=== PATIENT | female | born 1940 | race Caucasian/White ===

== ENCOUNTER 2018-08-09 12:52 | Inpatient (IN) | payer MEDICARE, OTHER ==
[2018-08-09] MEDS ORDERED: NALOXONE 2 MG SYG (12:56)
[2018-08-09] MEDS ORDERED: NALOXONE (0.4 MG/ML) INJ IV (13:00)
[2018-08-09] MEDS: SOD CHLORIDE 0.9% 1,000 ML IV (13:15)
[2018-08-09 13:22] LABS: ADD MAN DIFF? NO
[2018-08-09 13:32] LABS: WHITE BLOOD COUNT 18.3 10^3/ul (4.8-10.8)
[2018-08-09 13:32] LABS: BASOPHILS % 0.2 % (0.0-2.0); EOSINOPHILS # 0.1 10^3/ul (0.0-0.5); EOSINOPHILS % 0.3 % (0.0-7.0); HEMOGLOBIN 11.4 g/dl (12.0-16.0); LYMPHOCYTES # 3.4 10^3/ul (0.8-2.9); LYMPHOCYTES % 18.3 % (15.0-51.0); MEAN CORPUSCULAR HEMOGLOBIN 23.4 pg (29.0-33.0); MEAN CORPUSCULAR HGB CONC 29.2 g/dl (32.0-37.0); MEAN CORPUSCULAR VOLUME 79.9 fl (82.0-101.0); MEAN PLATELET VOLUME 11.7 fl (7.4-10.4); MONOCYTE # 1.5 10^3/ul (0.3-0.9); NEUTROPHIL # 13.3 10^3/ul (1.6-7.5); NEUTROPHILS % 72.8 % (39.0-77.0); PLATELET COUNT 408 10^3/UL (140-415); RED BLOOD COUNT 4.88 10^6/ul (4.20-5.40); RED CELL DISTRIBUTION WIDTH 16.6 % (11.5-14.5)
[2018-08-09 13:50] LABS: INR 1.06; PARTIAL THROMBOPLASTIN TIME 27.5 Sec (23.0-35.0); PROTIME 13.9 Sec (11.9-14.9); PT RATIO 1.1
[2018-08-09 13:52] LABS: ADD UMIC YES; UR ASCORBIC ACID NEGATIVE (NEGATIVE); UR BILIRUBIN (Dip) NEGATIVE (NEGATIVE); UR BLOOD (Dip) 2+ mg/dL (NEGATIVE); UR CLARITY TURBID (CLEAR); UR COLOR AMBER (YELLOW); UR GLUCOSE (Dip) NEGATIVE (NEGATIVE); UR HYALINE CAST FEW /HPF (NONE SEEN); UR KETONES (Dip) NEGATIVE (NEGATIVE); UR LEUKOCYTE ESTERASE (Dip) 3+ Leu/ul (NEGATIVE); UR NITRITE (Dip) NEGATIVE (NEGATIVE); UR NONSQUAMOUS EPITHELIAL CELL 14 /HPF (NONE SEEN); UR RBC > 182 /HPF (0-5); UR SPECIFIC GRAVITY (Dip) 1.014 (1.003-1.030); UR SQUAMOUS EPITHELIAL CELL FEW /HPF (FEW); UR TOTAL PROTEIN (Dip) 2+ mg/dl (NEGATIVE); UR UROBILINOGEN (Dip) NEGATIVE (NEGATIVE); UR WBC > 182 /HPF (0-5)
[2018-08-09 13:55] LABS: AMMONIA < 9 umol/l (9-30)
[2018-08-09 14:07] LABS: ALANINE AMINOTRANSFERASE 32 IU/L (13-69); ALBUMIN/GLOBULIN RATIO 0.93; ALKALINE PHOSPHATASE 129 IU/L (42-121); ANION GAP 11 (5-13); ASPARTATE AMINO TRANSFERASE 56 IU/L (15-46); CALCIUM 8.2 mg/dl (8.4-10.2); CARBON DIOXIDE 21 mmol/L (21-31); CHLORIDE 111 mmol/L (97-110); CREATININE 2.71 mg/dl (0.44-1.00); GLUCOSE 181 mg/dl (70-220); POTASSIUM 5.2 mmol/L (3.5-5.1); SODIUM 143 mmol/L (135-144); TOTAL PROTEIN 6.2 g/dl (6.1-8.1)
[2018-08-09 14:26] LABS: AMPHETAMINE/METHAMPHETAMINE Negative (NEGATIVE); BARBITURATES Negative (NEGATIVE); BENZODIAZEPINES Negative (NEGATIVE); CANNABINOIDS Negative (NEGATIVE); COCAINE Negative (NEGATIVE); OPIATES Negative (NEGATIVE)
[2018-08-09] MEDS ORDERED: SOD CHLORIDE 0.9% 1,000 ML IV (14:40)
[2018-08-09] MEDS ORDERED: ONDANSETRON 4 MG INJ IV ×2 (15:00→16:30)
[2018-08-09] MEDS ORDERED: ACETAMINOPHEN 325 MG TAB PO (15:00)
[2018-08-09] MEDS: CEFEPIME 1GM/50 ML (PMX) 50 ML IVPB (15:08)
[2018-08-09] MEDS: CIPROFLOXACIN 400MG/D5W 200 ML IVPB (15:17)
[2018-08-09 16:00] LABS: BLOOD UREA NITROGEN 142 mg/dl (7-20)
[2018-08-09 16:30] LABS: HEMOGLOBIN A1C 10.6 % (0-5.9)
[2018-08-09] MEDS ORDERED: GLUCAGON 1 MG INJ IM (16:30)
[2018-08-09] MEDS ORDERED: NACL 0.9% 3 ML SYG IV (16:30)
[2018-08-09] MEDS ORDERED: GLUCOSE GEL 15 GRAM TUBE PO (16:30)
[2018-08-09] MEDS ORDERED: GLUCOSE GEL 15 GRAM TUBE BUCCAL (16:30)
[2018-08-09] MEDS: DEXTROSE 5%-0.45% NACL 1,000 ML IV (16:55)
[2018-08-09] MEDS: INSULIN ASPART [NOVOLOG] 3 ML PEN SC ×2 (17:00→20:11)
[2018-08-09] MEDS ORDERED: ERTAPENEM SODIUM 0.5 GM in SOD CHLORIDE 0.9% 100 ML IVPB (18:00)
[2018-08-09] MEDS: ERTAPENEM SODIUM 0.5 GM in SOD CHLORIDE 0.9% 100 ML IVPB (18:44)
[2018-08-09 18:56] LABS: LACTIC ACID 1.6 mmol/L (0.5-2.0)
[2018-08-09] MEDS: INSULIN GLARGINE [LANTus] (100 UNITS/ML) SYG SC (20:14)
[2018-08-09] MEDS ORDERED: INSULIN GLARGINE [LANtus] 3 ML PEN SC (21:00)
[2018-08-10 00:12] LABS: CREATINE KINASE 1315 IU/L (23-200)
[2018-08-10 00:25] LABS: CK INDEX 0.6; CK-MB 8.02 ng/ml (0.0-2.4)
[2018-08-10 00:29] LABS: TROPONIN-I 0.723 ng/ml (0.000-0.120)
[2018-08-10] MEDS: INSULIN ASPART [NOVOLOG] 3 ML PEN SC ×6 (01:00→22:07)
[2018-08-10] MEDS: DEXTROSE 5%-0.45% NACL 1,000 ML IV (04:53)
[2018-08-10] MEDS: PANTOPRAZOLE 40 MG INJ IV (05:31)
[2018-08-10 06:08] LABS: ADD MAN DIFF? NO
[2018-08-10 06:18] LABS: WHITE BLOOD COUNT 14.8 10^3/ul (4.8-10.8)
[2018-08-10 06:18] LABS: BASOPHILS % 0.2 % (0.0-2.0); EOSINOPHILS # 0.1 10^3/ul (0.0-0.5); EOSINOPHILS % 0.6 % (0.0-7.0); HEMATOCRIT 36.8 % (37.0-47.0); HEMOGLOBIN 10.9 g/dl (12.0-16.0); LYMPHOCYTES # 1.8 10^3/ul (0.8-2.9); LYMPHOCYTES % 12.1 % (15.0-51.0); MEAN CORPUSCULAR HEMOGLOBIN 23.6 pg (29.0-33.0); MEAN CORPUSCULAR HGB CONC 29.6 g/dl (32.0-37.0); MEAN CORPUSCULAR VOLUME 79.8 fl (82.0-101.0); MEAN PLATELET VOLUME 11.5 fl (7.4-10.4); MONOCYTE # 1.3 10^3/ul (0.3-0.9); MONOCYTES % 8.6 % (0.0-11.0); NEUTROPHIL # 11.6 10^3/ul (1.6-7.5); PLATELET COUNT 403 10^3/UL (140-415); RED BLOOD COUNT 4.61 10^6/ul (4.20-5.40); RED CELL DISTRIBUTION WIDTH 16.4 % (11.5-14.5)
[2018-08-10 06:47] LABS: ALANINE AMINOTRANSFERASE 30 IU/L (13-69); ALBUMIN 2.9 g/dl (3.3-4.9); ALBUMIN/GLOBULIN RATIO 0.87; ALKALINE PHOSPHATASE 144 IU/L (42-121); ANION GAP 10 (5-13); ASPARTATE AMINO TRANSFERASE 55 IU/L (15-46); BILIRUBIN,INDIRECT 0.1 mg/dl (0-1.1); BILIRUBIN,TOTAL 0.1 mg/dl (0.2-1.3); BLOOD UREA NITROGEN 116 mg/dl (7-20); CALCIUM 8.1 mg/dl (8.4-10.2); CARBON DIOXIDE 25 mmol/L (21-31); CHLORIDE 116 mmol/L (97-110); CREATININE 1.72 mg/dl (0.44-1.00); GLUCOSE 116 mg/dl (70-220); POTASSIUM 3.8 mmol/L (3.5-5.1); SODIUM 151 mmol/L (135-144); TOTAL PROTEIN 6.2 g/dl (6.1-8.1)
[2018-08-10 07:04] LABS: CREATINE KINASE 1239 IU/L (23-200)
[2018-08-10 07:16] LABS: CK INDEX 0.6
[2018-08-10] MEDS ORDERED: VITAMIN A & D 5 GM OINT PACKET TOP (07:21)
[2018-08-10 07:24] LABS: TROPONIN-I 0.588 ng/ml (0.000-0.120)
[2018-08-10] MEDS: POVIDONE IODINE 10% 28.4 GM OINT TOP (08:39)
[2018-08-10] MEDS: ASPIRIN 300 MG SUPP PR (08:40)
[2018-08-10] MEDS: BALSAM PERU/CASTOR OIL 60 GM TUBE TOP (08:40)
[2018-08-10] MEDS: INSULIN GLARGINE [LANTus] (100 UNITS/ML) SYG SC ×2 (08:43→22:11)
[2018-08-10] MEDS ORDERED: INSULIN GLARGINE [LANtus] 3 ML PEN SC (09:00)
[2018-08-10] MEDS: D5W + KCL 20 MEQ 1,000 ML IV ×3 (13:00→23:00)
[2018-08-10] MEDS: ERTAPENEM SODIUM 0.5 GM in SOD CHLORIDE 0.9% 100 ML IVPB (18:49)
[2018-08-10] MEDS ORDERED: VANCOMYCIN IV PER PHARMACY XX (21:30)
[2018-08-11] MEDS: VANCOMYCIN 1 GM 250 ML IVPB (00:28)
[2018-08-11] MEDS: INSULIN ASPART [NOVOLOG] 3 ML PEN SC ×6 (01:00→21:00)
[2018-08-11 06:05] LABS: ADD MAN DIFF? NO
[2018-08-11 06:07] LABS: WHITE BLOOD COUNT 10.5 10^3/ul (4.8-10.8)
[2018-08-11 06:08] LABS: ABNORMAL IP MESSAGE 1; BASOPHILS % 0.2 % (0.0-2.0); EOSINOPHILS # 0.2 10^3/ul (0.0-0.5); HEMATOCRIT 33.3 % (37.0-47.0); HEMOGLOBIN 9.6 g/dl (12.0-16.0); LYMPHOCYTES # 1.7 10^3/ul (0.8-2.9); LYMPHOCYTES % 15.9 % (15.0-51.0); MEAN CORPUSCULAR HEMOGLOBIN 23.5 pg (29.0-33.0); MEAN CORPUSCULAR HGB CONC 28.8 g/dl (32.0-37.0); MEAN CORPUSCULAR VOLUME 81.4 fl (82.0-101.0); MONOCYTE # 0.8 10^3/ul (0.3-0.9); MONOCYTES % 7.6 % (0.0-11.0); NEUTROPHIL # 7.8 10^3/ul (1.6-7.5); NEUTROPHILS % 73.8 % (39.0-77.0); PLATELET COUNT 407 10^3/UL (140-415); RED BLOOD COUNT 4.09 10^6/ul (4.20-5.40); RED CELL DISTRIBUTION WIDTH 16.1 % (11.5-14.5)
[2018-08-11 06:19] LABS: POSITIVE DIFF @See below
[2018-08-11] MEDS: PANTOPRAZOLE 40 MG INJ IV (06:22)
[2018-08-11 06:25] LABS: ALBUMIN 2.4 g/dl (3.3-4.9); ANION GAP 9 (5-13); BLOOD UREA NITROGEN 62 mg/dl (7-20); CALCIUM 8.2 mg/dl (8.4-10.2); CARBON DIOXIDE 26 mmol/L (21-31); CHLORIDE 116 mmol/L (97-110); CHOL/HDL RATIO 6.2 RATIO; CHOLESTEROL 137 mg/dl (100-200); CREATININE 1.01 mg/dl (0.44-1.00); GLUCOSE 109 mg/dl (70-220); HDL CHOLESTEROL 22 mg/dl (33-92); LDL CHOLESTEROL,CALCULATED 73 mg/dl; MAGNESIUM 2.7 mg/dl (1.7-2.5); POTASSIUM 3.7 mmol/L (3.5-5.1); SODIUM 151 mmol/L (135-144); TRIGLYCERIDES 209 mg/dl (0-149)
[2018-08-11 06:30] LABS: CREATINE KINASE 508 IU/L (23-200)
[2018-08-11 06:42] LABS: CK INDEX 0.7; CK-MB 3.34 ng/ml (0.0-2.4)
[2018-08-11 06:47] LABS: TROPONIN-I 0.316 ng/ml (0.000-0.120)
[2018-08-11] MEDS: INSULIN GLARGINE [LANTus] (100 UNITS/ML) SYG SC ×2 (08:53→21:32)
[2018-08-11] MEDS: ASPIRIN 300 MG SUPP PR (08:55)
[2018-08-11] MEDS: POVIDONE IODINE 10% 28.4 GM OINT TOP (08:57)
[2018-08-11] MEDS: BALSAM PERU/CASTOR OIL 60 GM TUBE TOP (08:57)
[2018-08-11] MEDS: D5W + KCL 20 MEQ 1,000 ML IV ×2 (08:58→18:10)
[2018-08-11] MEDS: DEXTROSE 50% 50 ML SYRINGE IV ×2 (09:00→10:59)
[2018-08-11] MEDS: ERTAPENEM SODIUM 1 GM in SOD CHLORIDE 0.9% 100 ML IVPB (17:25)
[2018-08-11] MEDS: ATORVASTATIN 40 MG TAB PO (20:11)
[2018-08-11] MEDS: METOPROLOL 25 MG TAB PO (20:11)
[2018-08-12] MEDS: INSULIN ASPART [NOVOLOG] 3 ML PEN SC ×6 (01:00→21:00)
[2018-08-12] MEDS: VANCOMYCIN 500 MG (PMX) 100 ML IVPB (01:15)
[2018-08-12] MEDS: D5W + KCL 20 MEQ 1,000 ML IV ×2 (05:08→17:25)
[2018-08-12 06:28] LABS: CREATINE KINASE 240 IU/L (23-200)
[2018-08-12 06:39] LABS: CK INDEX 1.2; CK-MB 2.85 ng/ml (0.0-2.4)
[2018-08-12] MEDS: PANTOPRAZOLE 40 MG INJ IV (06:49)
[2018-08-12 07:40] LABS: TROPONIN-I 0.198 ng/ml (0.000-0.120)
[2018-08-12] MEDS: METOPROLOL 25 MG TAB PO ×2 (09:00→21:24)
[2018-08-12 09:12] LABS: ADD MAN DIFF? NO
[2018-08-12 09:15] LABS: WHITE BLOOD COUNT 9.1 10^3/ul (4.8-10.8)
[2018-08-12 09:15] LABS: ABNORMAL IP MESSAGE 1; BASOPHILS % 0.1 % (0.0-2.0); EOSINOPHILS # 0.2 10^3/ul (0.0-0.5); EOSINOPHILS % 1.9 % (0.0-7.0); HEMATOCRIT 32.4 % (37.0-47.0); HEMOGLOBIN 9.3 g/dl (12.0-16.0); LYMPHOCYTES % 21.9 % (15.0-51.0); MEAN CORPUSCULAR HEMOGLOBIN 23.4 pg (29.0-33.0); MEAN CORPUSCULAR HGB CONC 28.7 g/dl (32.0-37.0); MEAN CORPUSCULAR VOLUME 81.4 fl (82.0-101.0); MEAN PLATELET VOLUME 12.4 fl (7.4-10.4); MONOCYTE # 0.7 10^3/ul (0.3-0.9); MONOCYTES % 7.5 % (0.0-11.0); NEUTROPHIL # 6.2 10^3/ul (1.6-7.5); NEUTROPHILS % 67.8 % (39.0-77.0); RED BLOOD COUNT 3.98 10^6/ul (4.20-5.40); RED CELL DISTRIBUTION WIDTH 15.9 % (11.5-14.5)
[2018-08-12] MEDS: INSULIN GLARGINE [LANTus] (100 UNITS/ML) SYG SC ×2 (09:15→21:31)
[2018-08-12 09:16] LABS: PLATELET COUNT 312 10^3/UL (140-415); POSITIVE DIFF @See below
[2018-08-12 10:11] LABS: ALBUMIN 2.5 g/dl (3.3-4.9); ANION GAP 1 (5-13); BLOOD UREA NITROGEN 36 mg/dl (7-20); CALCIUM 8.2 mg/dl (8.4-10.2); CARBON DIOXIDE 23 mmol/L (21-31); CHLORIDE 121 mmol/L (97-110); GLUCOSE 111 mg/dl (70-220); MAGNESIUM 2.4 mg/dl (1.7-2.5); PHOSPHORUS 2.3 mg/dl (2.5-4.9); SODIUM 145 mmol/L (135-144)
[2018-08-12] MEDS: ASPIRIN 300 MG SUPP PR (13:09)
[2018-08-12] MEDS: POVIDONE IODINE 10% 28.4 GM OINT TOP (13:10)
[2018-08-12] MEDS: BALSAM PERU/CASTOR OIL 60 GM TUBE TOP (13:10)
[2018-08-12] MEDS: ERTAPENEM SODIUM 1 GM in SOD CHLORIDE 0.9% 100 ML IVPB (17:25)
[2018-08-12] MEDS: ATORVASTATIN 40 MG TAB PO (21:19)
[2018-08-12] MEDS ORDERED: VANCOMYCIN 750 MG (PMX) 250 ML IVPB (22:00)
[2018-08-13] MEDS: INSULIN ASPART [NOVOLOG] 3 ML PEN SC ×6 (01:00→20:34)
[2018-08-13] MEDS: D5W + KCL 20 MEQ 1,000 ML IV (01:56)
[2018-08-13] MEDS: PANTOPRAZOLE 40 MG INJ IV (05:53)
[2018-08-13 06:38] LABS: ADD MAN DIFF? NO
[2018-08-13 06:41] LABS: WHITE BLOOD COUNT 11.2 10^3/ul (4.8-10.8)
[2018-08-13 06:41] LABS: BASOPHILS % 0.2 % (0.0-2.0); EOSINOPHILS # 0.1 10^3/ul (0.0-0.5); EOSINOPHILS % 1.3 % (0.0-7.0); HEMATOCRIT 32.7 % (37.0-47.0); HEMOGLOBIN 9.7 g/dl (12.0-16.0); LYMPHOCYTES # 2.3 10^3/ul (0.8-2.9); LYMPHOCYTES % 20.8 % (15.0-51.0); MEAN CORPUSCULAR HEMOGLOBIN 23.5 pg (29.0-33.0); MEAN CORPUSCULAR HGB CONC 29.7 g/dl (32.0-37.0); MEAN CORPUSCULAR VOLUME 79.4 fl (82.0-101.0); MEAN PLATELET VOLUME 11.1 fl (7.4-10.4); MONOCYTE # 0.9 10^3/ul (0.3-0.9); MONOCYTES % 7.6 % (0.0-11.0); NEUTROPHIL # 7.8 10^3/ul (1.6-7.5); NEUTROPHILS % 69.7 % (39.0-77.0); PLATELET COUNT 415 10^3/UL (140-415); RED BLOOD COUNT 4.12 10^6/ul (4.20-5.40); RED CELL DISTRIBUTION WIDTH 15.2 % (11.5-14.5)
[2018-08-13 07:04] LABS: ALBUMIN 2.5 g/dl (3.3-4.9); BLOOD UREA NITROGEN 20 mg/dl (7-20); CHLORIDE 109 mmol/L (97-110); CREATININE 0.62 mg/dl (0.44-1.00); GLUCOSE 90 mg/dl (70-220); POTASSIUM 4.1 mmol/L (3.5-5.1); SODIUM 138 mmol/L (135-144)
[2018-08-13 07:05] LABS: ANION GAP 5 (5-13); CARBON DIOXIDE 24 mmol/L (21-31)
[2018-08-13] MEDS: GLUCOSE GEL 15 GRAM TUBE PO (08:33)
[2018-08-13] MEDS: CLOPIDOGREL 75 MG TAB PO (08:43)
[2018-08-13] MEDS: INSULIN GLARGINE [LANTus] (100 UNITS/ML) SYG SC ×2 (08:44→21:08)
[2018-08-13] MEDS: BALSAM PERU/CASTOR OIL 60 GM TUBE TOP (08:44)
[2018-08-13] MEDS: METOPROLOL 25 MG TAB PO ×2 (08:44→20:41)
[2018-08-13] MEDS: POVIDONE IODINE 10% 28.4 GM OINT TOP (08:44)
[2018-08-13] MEDS: ASPIRIN 300 MG SUPP PR (09:00)
[2018-08-13] MEDS ORDERED: CLOPIDOGREL 75 MG TAB PO (09:00)
[2018-08-13] MEDS: DEXTROSE 5%-0.45% NACL 1,000 ML IV (11:00)
[2018-08-13 16:34] LABS: ADD UMIC YES; UR ASCORBIC ACID NEGATIVE (NEGATIVE); UR BILIRUBIN (Dip) NEGATIVE (NEGATIVE); UR BLOOD (Dip) 2+ mg/dL (NEGATIVE); UR BUDDING YEAST MANY /HPF (NONE SEEN); UR CLARITY TURBID (CLEAR); UR COLOR YELLOW (YELLOW); UR GLUCOSE (Dip) NEGATIVE (NEGATIVE); UR KETONES (Dip) NEGATIVE (NEGATIVE); UR LEUKOCYTE ESTERASE (Dip) 3+ Leu/ul (NEGATIVE); UR NITRITE (Dip) NEGATIVE (NEGATIVE); UR NONSQUAMOUS EPITHELIAL CELL 6 /HPF (NONE SEEN); UR RBC 128 /HPF (0-5); UR SPECIFIC GRAVITY (Dip) 1.019 (1.003-1.030); UR TOTAL PROTEIN (Dip) 2+ mg/dl (NEGATIVE); UR UROBILINOGEN (Dip) 1+ mg/dL (NEGATIVE); UR WBC > 182 /HPF (0-5)
[2018-08-13] MEDS: ERTAPENEM SODIUM 1 GM in SOD CHLORIDE 0.9% 100 ML IVPB (18:04)
[2018-08-13] MEDS: ATORVASTATIN 40 MG TAB PO (20:41)
[2018-08-14] MEDS: INSULIN ASPART [NOVOLOG] 3 ML PEN SC ×6 (01:00→21:00)
[2018-08-14] MEDS: DEXTROSE 50% 50 ML SYRINGE IV (01:15)
[2018-08-14] MEDS: PANTOPRAZOLE 40 MG INJ IV (05:37)
[2018-08-14 06:01] LABS: ADD MAN DIFF? NO
[2018-08-14 06:03] LABS: BASOPHILS % 0.2 % (0.0-2.0); EOSINOPHILS # 0.1 10^3/ul (0.0-0.5); HEMATOCRIT 33.5 % (37.0-47.0); HEMOGLOBIN 10.1 g/dl (12.0-16.0); LYMPHOCYTES # 2.5 10^3/ul (0.8-2.9); LYMPHOCYTES % 19.4 % (15.0-51.0); MEAN CORPUSCULAR HEMOGLOBIN 23.4 pg (29.0-33.0); MEAN CORPUSCULAR HGB CONC 30.1 g/dl (32.0-37.0); MEAN CORPUSCULAR VOLUME 77.5 fl (82.0-101.0); MEAN PLATELET VOLUME 11.3 fl (7.4-10.4); MONOCYTES % 7.8 % (0.0-11.0); NEUTROPHIL # 9.3 10^3/ul (1.6-7.5); NEUTROPHILS % 71.1 % (39.0-77.0); PLATELET COUNT 443 10^3/UL (140-415); RED BLOOD COUNT 4.32 10^6/ul (4.20-5.40); RED CELL DISTRIBUTION WIDTH 15.1 % (11.5-14.5)
[2018-08-14] MEDS: DEXTROSE 5%-0.45% NACL 1,000 ML IV (07:00)
[2018-08-14 07:04] LABS: ANION GAP 6 (5-13); BLOOD UREA NITROGEN 18 mg/dl (7-20); CALCIUM 8.2 mg/dl (8.4-10.2); CARBON DIOXIDE 23 mmol/L (21-31); CHLORIDE 105 mmol/L (97-110); CREATININE 0.71 mg/dl (0.44-1.00); GLUCOSE 291 mg/dl (70-220); MAGNESIUM 1.9 mg/dl (1.7-2.5); PHOSPHORUS 3.2 mg/dl (2.5-4.9); POTASSIUM 4.2 mmol/L (3.5-5.1); SODIUM 134 mmol/L (135-144)
[2018-08-14] MEDS: CLOPIDOGREL 75 MG TAB PO (09:06)
[2018-08-14] MEDS: METOPROLOL 25 MG TAB PO ×2 (09:06→20:59)
[2018-08-14] MEDS: ASPIRIN 300 MG SUPP PR (09:06)
[2018-08-14] MEDS: POVIDONE IODINE 10% 28.4 GM OINT TOP (09:07)
[2018-08-14] MEDS: BALSAM PERU/CASTOR OIL 60 GM TUBE TOP (09:07)
[2018-08-14] MEDS: COLLAGENASE 5 GM (UD JAR) TOP (09:07)
[2018-08-14] MEDS: INSULIN GLARGINE [LANTus] (100 UNITS/ML) SYG SC ×2 (09:12→21:33)
[2018-08-14] MEDS: CASPOFUNGIN 70 MG in SOD CHLORIDE 0.9% 250 ML IVPB (18:12)
[2018-08-14] MEDS: ATORVASTATIN 80 MG TAB PO (20:59)
[2018-08-14] MEDS: ASCORBIC ACID 500 MG TAB PO (20:59)
[2018-08-14] MEDS: EZETIMIBE 10 MG TAB PO (20:59)
[2018-08-15] MEDS: INSULIN ASPART [NOVOLOG] 3 ML PEN SC ×6 (01:00→20:31)
[2018-08-15] MEDS: PANTOPRAZOLE 40 MG INJ IV (05:17)
[2018-08-15] MEDS: DEXTROSE 50% 50 ML SYRINGE IV ×2 (05:25→12:02)
[2018-08-15 06:19] LABS: ADD MAN DIFF? NO
[2018-08-15 06:24] LABS: WHITE BLOOD COUNT 11.6 10^3/ul (4.8-10.8)
[2018-08-15 06:24] LABS: BASOPHILS % 0.2 % (0.0-2.0); EOSINOPHILS # 0.1 10^3/ul (0.0-0.5); EOSINOPHILS % 0.9 % (0.0-7.0); HEMATOCRIT 29.2 % (37.0-47.0); LYMPHOCYTES # 3.3 10^3/ul (0.8-2.9); LYMPHOCYTES % 28.4 % (15.0-51.0); MEAN CORPUSCULAR HEMOGLOBIN 23.5 pg (29.0-33.0); MEAN CORPUSCULAR HGB CONC 30.8 g/dl (32.0-37.0); MEAN CORPUSCULAR VOLUME 76.2 fl (82.0-101.0); MEAN PLATELET VOLUME 10.7 fl (7.4-10.4); MONOCYTE # 0.9 10^3/ul (0.3-0.9); MONOCYTES % 7.8 % (0.0-11.0); NEUTROPHIL # 7.2 10^3/ul (1.6-7.5); NEUTROPHILS % 62.3 % (39.0-77.0); PLATELET COUNT 452 10^3/UL (140-415); RED BLOOD COUNT 3.83 10^6/ul (4.20-5.40); RED CELL DISTRIBUTION WIDTH 14.8 % (11.5-14.5)
[2018-08-15 07:18] LABS: ANION GAP 5 (5-13); BLOOD UREA NITROGEN 11 mg/dl (7-20); CALCIUM 8.4 mg/dl (8.4-10.2); CARBON DIOXIDE 22 mmol/L (21-31); CHLORIDE 111 mmol/L (97-110); CREATININE 0.69 mg/dl (0.44-1.00); MAGNESIUM 1.9 mg/dl (1.7-2.5); PHOSPHORUS 2.9 mg/dl (2.5-4.9); POTASSIUM 3.6 mmol/L (3.5-5.1); SODIUM 138 mmol/L (135-144)
[2018-08-15 07:28] LABS: GLUCOSE 41 mg/dl (70-220)
[2018-08-15] MEDS: CLOPIDOGREL 75 MG TAB PO (07:55)
[2018-08-15] MEDS: ASPIRIN 300 MG SUPP PR (07:56)
[2018-08-15 08:12] LABS: ERYTHROCYTE SEDIMENTATION RATE 110 mm/Hr (0-30)
[2018-08-15] MEDS ORDERED: INSULIN GLARGINE [LANTus] (100 UNITS/ML) SYG SC ×2 (09:00→21:00)
[2018-08-15] MEDS ORDERED: CLOPIDOGREL 75 MG TAB PO (09:00)
[2018-08-15] MEDS: COLLAGENASE 5 GM (UD JAR) TOP (09:57)
[2018-08-15] MEDS: BALSAM PERU/CASTOR OIL 60 GM TUBE TOP (09:57)
[2018-08-15] MEDS: ASCORBIC ACID 500 MG TAB PO ×2 (09:59→20:30)
[2018-08-15] MEDS: METOPROLOL 25 MG TAB PO (09:59)
[2018-08-15] MEDS: FAMOTIDINE 20 MG TAB PO (09:59)
[2018-08-15] MEDS: MEMANTINE 10 MG TAB PO (09:59)
[2018-08-15] MEDS: MULTIVITAMINS THERAPEUTIC TAB PO (09:59)
[2018-08-15] MEDS ORDERED: ASPIRIN 81 MG TAB PO (12:00)
[2018-08-15 12:52] LABS: HEMATOCRIT 31.3 % (37.0-47.0); HEMOGLOBIN 9.5 g/dl (12.0-16.0)
[2018-08-15] MEDS: SOD CHLORIDE 0.9% 100 ML (14:12)
[2018-08-15] MEDS: IODIXANOL LOCM 100 ML BTL (14:12)
[2018-08-15 15:10] LABS: RAPID PLASMA REAGIN NONREACTIVE (NR)
[2018-08-15] MEDS: POVIDONE IODINE 10% 28.4 GM OINT TOP (17:26)
[2018-08-15] MEDS: ERTAPENEM SODIUM 1 GM in SOD CHLORIDE 0.9% 100 ML IVPB (17:27)
[2018-08-15] MEDS: CASPOFUNGIN 50 MG in SOD CHLORIDE 0.9% 250 ML IVPB (19:32)
[2018-08-15] MEDS: ATORVASTATIN 80 MG TAB PO (20:29)
[2018-08-15] MEDS: EZETIMIBE 10 MG TAB PO (20:29)
[2018-08-15] MEDS: METOPROLOL 50 MG TAB PO (20:31)
[2018-08-15] MEDS: INSULIN GLARGINE [LANTus] (100 UNITS/ML) SYG SC (20:45)
[2018-08-16] MEDS: INSULIN ASPART [NOVOLOG] 3 ML PEN SC ×6 (02:00→21:57)
[2018-08-16] MEDS: DEXTROSE 50% 50 ML SYRINGE IV ×2 (02:04→06:00)
[2018-08-16] MEDS: PANTOPRAZOLE 40 MG INJ IV (06:06)
[2018-08-16 06:23] LABS: OCCULT BLOOD STOOL POSITIVE (NEGATIVE)
[2018-08-16] MEDS: ASCORBIC ACID 500 MG TAB PO ×2 (08:10→21:37)
[2018-08-16] MEDS: CLOPIDOGREL 75 MG TAB PO (08:10)
[2018-08-16] MEDS: ASPIRIN 81 MG TAB PO (08:10)
[2018-08-16] MEDS: COLLAGENASE 5 GM (UD JAR) TOP (08:10)
[2018-08-16] MEDS: MEMANTINE 10 MG TAB PO (08:10)
[2018-08-16] MEDS: MULTIVITAMINS THERAPEUTIC TAB PO (08:10)
[2018-08-16] MEDS: FAMOTIDINE 20 MG TAB PO (08:10)
[2018-08-16] MEDS: METOPROLOL 50 MG TAB PO ×2 (08:11→21:42)
[2018-08-16] MEDS: POVIDONE IODINE 10% 28.4 GM OINT TOP (08:13)
[2018-08-16] MEDS: BALSAM PERU/CASTOR OIL 60 GM TUBE TOP (08:13)
[2018-08-16] MEDS: INSULIN GLARGINE [LANTus] (100 UNITS/ML) SYG SC (08:19)
[2018-08-16] MEDS ORDERED: INSULIN GLARGINE [LANTus] (100 UNITS/ML) SYG SC (09:00)
[2018-08-16 15:21] LABS: ADD MAN DIFF? NO
[2018-08-16 15:26] LABS: BASOPHILS % 0.2 % (0.0-2.0); EOSINOPHILS # 0.1 10^3/ul (0.0-0.5); EOSINOPHILS % 1.4 % (0.0-7.0); HEMATOCRIT 28.8 % (37.0-47.0); HEMOGLOBIN 8.7 g/dl (12.0-16.0); LYMPHOCYTES # 1.9 10^3/ul (0.8-2.9); LYMPHOCYTES % 21.3 % (15.0-51.0); MEAN CORPUSCULAR HEMOGLOBIN 23.5 pg (29.0-33.0); MEAN CORPUSCULAR HGB CONC 30.2 g/dl (32.0-37.0); MEAN CORPUSCULAR VOLUME 77.8 fl (82.0-101.0); MEAN PLATELET VOLUME 10.7 fl (7.4-10.4); MONOCYTE # 0.7 10^3/ul (0.3-0.9); MONOCYTES % 8.3 % (0.0-11.0); NEUTROPHIL # 6.1 10^3/ul (1.6-7.5); NEUTROPHILS % 68.5 % (39.0-77.0); PLATELET COUNT 379 10^3/UL (140-415); RED CELL DISTRIBUTION WIDTH 14.9 % (11.5-14.5)
[2018-08-16 15:26] LABS: WHITE BLOOD COUNT 8.8 10^3/ul (4.8-10.8)
[2018-08-16 15:46] LABS: ALANINE AMINOTRANSFERASE 28 IU/L (13-69); ALBUMIN 2.3 g/dl (3.3-4.9); ALBUMIN/GLOBULIN RATIO 0.85; ALKALINE PHOSPHATASE 131 IU/L (42-121); ANION GAP 7 (5-13); ASPARTATE AMINO TRANSFERASE 30 IU/L (15-46); BLOOD UREA NITROGEN 11 mg/dl (7-20); CALCIUM 7.9 mg/dl (8.4-10.2); CARBON DIOXIDE 24 mmol/L (21-31); CHLORIDE 108 mmol/L (97-110); CREATININE 0.68 mg/dl (0.44-1.00); GLUCOSE 183 mg/dl (70-220); SODIUM 139 mmol/L (135-144)
[2018-08-16] MEDS: ERTAPENEM SODIUM 1 GM in SOD CHLORIDE 0.9% 100 ML IVPB (16:12)
[2018-08-16] MEDS: CASPOFUNGIN 50 MG in SOD CHLORIDE 0.9% 250 ML IVPB (17:41)
[2018-08-16] MEDS: IOHEXOL 100 ML (21:07)
[2018-08-16] MEDS: SOD CHLORIDE 0.9% 100 ML (21:07)
[2018-08-16] MEDS: EZETIMIBE 10 MG TAB PO (21:37)
[2018-08-16] MEDS: ATORVASTATIN 80 MG TAB PO (21:37)
[2018-08-17] MEDS: INSULIN ASPART [NOVOLOG] 3 ML PEN SC ×6 (00:48→20:28)
[2018-08-17] MEDS: INSULIN GLARGINE [LANTus] (100 UNITS/ML) SYG SC ×2 (00:48→20:28)
[2018-08-17] MEDS: PANTOPRAZOLE 40 MG INJ IV (06:08)
[2018-08-17 06:34] LABS: ADD MAN DIFF? NO
[2018-08-17 06:44] LABS: BASOPHILS % 0.3 % (0.0-2.0); EOSINOPHILS # 0.1 10^3/ul (0.0-0.5); EOSINOPHILS % 0.7 % (0.0-7.0); HEMATOCRIT 27.5 % (37.0-47.0); HEMOGLOBIN 8.4 g/dl (12.0-16.0); LYMPHOCYTES # 2.6 10^3/ul (0.8-2.9); LYMPHOCYTES % 21.4 % (15.0-51.0); MEAN CORPUSCULAR HEMOGLOBIN 23.9 pg (29.0-33.0); MEAN CORPUSCULAR HGB CONC 30.5 g/dl (32.0-37.0); MEAN CORPUSCULAR VOLUME 78.1 fl (82.0-101.0); MEAN PLATELET VOLUME 10.9 fl (7.4-10.4); MONOCYTE # 0.9 10^3/ul (0.3-0.9); MONOCYTES % 7.4 % (0.0-11.0); NEUTROPHIL # 8.3 10^3/ul (1.6-7.5); NEUTROPHILS % 69.8 % (39.0-77.0); PLATELET COUNT 390 10^3/UL (140-415); RED BLOOD COUNT 3.52 10^6/ul (4.20-5.40); RED CELL DISTRIBUTION WIDTH 15.3 % (11.5-14.5)
[2018-08-17 06:44] LABS: WHITE BLOOD COUNT 11.9 10^3/ul (4.8-10.8)
[2018-08-17 06:47] LABS: RETICULOCYTE COUNT # 0.034 X10^6 (0.020-0.110)
[2018-08-17 06:47] LABS: RETICULOCYTE RBC 3.49
[2018-08-17 07:05] LABS: ANION GAP 8 (5-13); BLOOD UREA NITROGEN 11 mg/dl (7-20); CALCIUM 8.3 mg/dl (8.4-10.2); CARBON DIOXIDE 24 mmol/L (21-31); CHLORIDE 110 mmol/L (97-110); CREATININE 0.69 mg/dl (0.44-1.00); GLUCOSE 78 mg/dl (70-220); MAGNESIUM 1.8 mg/dl (1.7-2.5); PHOSPHORUS 2.6 mg/dl (2.5-4.9); POTASSIUM 3.9 mmol/L (3.5-5.1); SODIUM 142 mmol/L (135-144)
[2018-08-17 07:20] LABS: IRON < 10 ug/dl (35-150); TOTAL IRON BINDING CAPACITY 183 ug/dl (241-421)
[2018-08-17 07:53] LABS: FERRITIN 86.4 ng/ml (11.1-264.0)
[2018-08-17] MEDS: ASPIRIN 81 MG TAB PO (08:30)
[2018-08-17] MEDS: METOPROLOL 50 MG TAB PO ×2 (08:31→21:00)
[2018-08-17] MEDS: MULTIVITAMINS THERAPEUTIC TAB PO (08:31)
[2018-08-17] MEDS: MEMANTINE 10 MG TAB PO (08:31)
[2018-08-17] MEDS: CLOPIDOGREL 75 MG TAB PO (08:31)
[2018-08-17] MEDS: ASCORBIC ACID 500 MG TAB PO ×2 (08:31→21:00)
[2018-08-17] MEDS: COLLAGENASE 5 GM (UD JAR) TOP (08:32)
[2018-08-17] MEDS: BALSAM PERU/CASTOR OIL 60 GM TUBE TOP (08:32)
[2018-08-17] MEDS: POVIDONE IODINE 10% 28.4 GM OINT TOP (08:33)
[2018-08-17] MEDS: DEXTROSE 50% 50 ML SYRINGE IV (08:52)
[2018-08-17] MEDS ORDERED: INSULIN GLARGINE [LANTus] (100 UNITS/ML) SYG SC (09:00)
[2018-08-17] MEDS: SOD CHLORIDE 0.9% 1,000 ML IV (12:21)
[2018-08-17] MEDS: ERTAPENEM SODIUM 1 GM in SOD CHLORIDE 0.9% 100 ML IVPB (15:03)
[2018-08-17] MEDS ORDERED: MEROPENEM 500MG/50 ML (PMX) 50 ML IVPB (15:30)
[2018-08-17] MEDS ORDERED: VANCOMYCIN IV PER PHARMACY XX (15:30)
[2018-08-17] MEDS: MEROPENEM 1 GM/50ML(PMX) 50 ML IVPB ×2 (16:31→23:15)
[2018-08-17] MEDS: VANCOMYCIN 1 GM 250 ML IVPB (17:12)
[2018-08-17] MEDS: CASPOFUNGIN 50 MG in SOD CHLORIDE 0.9% 250 ML IVPB (18:24)
[2018-08-17] MEDS: EZETIMIBE 10 MG TAB PO (21:00)
[2018-08-17] MEDS: ATORVASTATIN 80 MG TAB PO (21:00)
[2018-08-18] MEDS: PANTOPRAZOLE 40 MG INJ IV (05:10)
[2018-08-18] MEDS: ACETAMINOPHEN 650 MG SUPP PR ×2 (05:10→16:21)
[2018-08-18] MEDS: INSULIN ASPART [NOVOLOG] 3 ML PEN SC ×4 (05:28→23:41)
[2018-08-18 05:53] LABS: ADD MAN DIFF? NO
[2018-08-18 06:04] LABS: BASOPHIL # 0.1 10^3/ul (0.0-0.1); BASOPHILS % 0.5 % (0.0-2.0); EOSINOPHILS # 0.2 10^3/ul (0.0-0.5); EOSINOPHILS % 1.9 % (0.0-7.0); HEMATOCRIT 24.4 % (37.0-47.0); HEMOGLOBIN 7.4 g/dl (12.0-16.0); LYMPHOCYTES # 2.2 10^3/ul (0.8-2.9); LYMPHOCYTES % 21.4 % (15.0-51.0); MEAN CORPUSCULAR HEMOGLOBIN 23.3 pg (29.0-33.0); MEAN CORPUSCULAR HGB CONC 30.3 g/dl (32.0-37.0); MEAN PLATELET VOLUME 10.8 fl (7.4-10.4); MONOCYTE # 0.7 10^3/ul (0.3-0.9); MONOCYTES % 7.2 % (0.0-11.0); NEUTROPHIL # 7.1 10^3/ul (1.6-7.5); NEUTROPHILS % 68.7 % (39.0-77.0); PLATELET COUNT 387 10^3/UL (140-415); RED BLOOD COUNT 3.17 10^6/ul (4.20-5.40); RED CELL DISTRIBUTION WIDTH 15.2 % (11.5-14.5)
[2018-08-18 06:04] LABS: WHITE BLOOD COUNT 10.3 10^3/ul (4.8-10.8)
[2018-08-18 06:33] LABS: ANION GAP 7 (5-13); BLOOD UREA NITROGEN 20 mg/dl (7-20); CARBON DIOXIDE 24 mmol/L (21-31); CHLORIDE 110 mmol/L (97-110); CREATININE 0.69 mg/dl (0.44-1.00); GLUCOSE 137 mg/dl (70-220); MAGNESIUM 1.7 mg/dl (1.7-2.5); PHOSPHORUS 2.5 mg/dl (2.5-4.9); POTASSIUM 4.5 mmol/L (3.5-5.1); SODIUM 141 mmol/L (135-144)
[2018-08-18 06:41] LABS: TROPONIN-I 0.044 ng/ml (0.000-0.120)
[2018-08-18] MEDS: ASCORBIC ACID 500 MG TAB PO ×2 (08:11→21:05)
[2018-08-18] MEDS: BALSAM PERU/CASTOR OIL 60 GM TUBE TOP (08:11)
[2018-08-18] MEDS: MEMANTINE 10 MG TAB PO (08:11)
[2018-08-18] MEDS: MULTIVITAMINS THERAPEUTIC TAB PO (08:11)
[2018-08-18] MEDS: MEROPENEM 1 GM/50ML(PMX) 50 ML IVPB ×2 (08:11→21:05)
[2018-08-18] MEDS: COLLAGENASE 5 GM (UD JAR) TOP (08:11)
[2018-08-18] MEDS: METOPROLOL 50 MG TAB PO ×2 (08:12→21:00)
[2018-08-18] MEDS: POVIDONE IODINE 10% 28.4 GM OINT TOP (08:14)
[2018-08-18 11:08] LABS: IMMEDIATE SPIN CROSSMATCH 1 2
[2018-08-18] MEDS ORDERED: SOD CHLORIDE 0.9% 1,000 ML IV (13:00)
[2018-08-18] MEDS: PANTOPRAZOLE IV 80 MG in SOD CHLORIDE 0.9% 100 ML IV ×2 (13:16→23:23)
[2018-08-18] MEDS: DEXTROSE 5%-0.9% NACL 1,000 ML IV (15:59)
[2018-08-18] MEDS: SOD FERRIC GLUC COMPLX 125 MG in SOD CHLORIDE 0.9% 100 ML IVPB (15:59)
[2018-08-18] MEDS: SUCRALFATE (100 MG/ML) 10ML CUP NGT ×2 (17:06→21:05)
[2018-08-18] MEDS: CASPOFUNGIN 50 MG in SOD CHLORIDE 0.9% 250 ML IVPB (17:06)
[2018-08-18 17:56] LABS: HEMATOCRIT 28.7 % (37.0-47.0); HEMOGLOBIN 9.1 g/dl (12.0-16.0)
[2018-08-18] MEDS: VANCOMYCIN 750 MG (PMX) 250 ML IVPB (18:18)
[2018-08-18] MEDS: ATORVASTATIN 80 MG TAB PO (21:05)
[2018-08-18] MEDS: EZETIMIBE 10 MG TAB PO (21:05)
[2018-08-18] MEDS: INSULIN GLARGINE [LANTus] (100 UNITS/ML) SYG SC (21:18)
[2018-08-19 00:56] LABS: HEMATOCRIT 25.7 % (37.0-47.0); HEMOGLOBIN 8.3 g/dl (12.0-16.0)
[2018-08-19] MEDS: DEXTROSE 5%-0.9% NACL 1,000 ML IV ×2 (01:36→08:31)
[2018-08-19] MEDS: INSULIN ASPART [NOVOLOG] 3 ML PEN SC ×4 (05:40→23:39)
[2018-08-19 06:24] LABS: ADD MAN DIFF? NO
[2018-08-19 06:31] LABS: WHITE BLOOD COUNT 8.8 10^3/ul (4.8-10.8)
[2018-08-19 06:31] LABS: BASOPHILS % 0.5 % (0.0-2.0); EOSINOPHILS # 0.2 10^3/ul (0.0-0.5); EOSINOPHILS % 2.7 % (0.0-7.0); HEMATOCRIT 25.9 % (37.0-47.0); HEMOGLOBIN 8.4 g/dl (12.0-16.0); LYMPHOCYTES # 1.8 10^3/ul (0.8-2.9); LYMPHOCYTES % 20.9 % (15.0-51.0); MEAN CORPUSCULAR HEMOGLOBIN 25.1 pg (29.0-33.0); MEAN CORPUSCULAR HGB CONC 32.4 g/dl (32.0-37.0); MEAN CORPUSCULAR VOLUME 77.5 fl (82.0-101.0); MEAN PLATELET VOLUME 10.9 fl (7.4-10.4); MONOCYTE # 0.7 10^3/ul (0.3-0.9); MONOCYTES % 8.2 % (0.0-11.0); NEUTROPHIL # 5.9 10^3/ul (1.6-7.5); NEUTROPHILS % 67.2 % (39.0-77.0); PLATELET COUNT 334 10^3/UL (140-415); RED BLOOD COUNT 3.34 10^6/ul (4.20-5.40); RED CELL DISTRIBUTION WIDTH 15.6 % (11.5-14.5)
[2018-08-19 06:45] LABS: ANION GAP 6 (5-13); BLOOD UREA NITROGEN 29 mg/dl (7-20); CALCIUM 7.8 mg/dl (8.4-10.2); CARBON DIOXIDE 23 mmol/L (21-31); CHLORIDE 112 mmol/L (97-110); CREATININE 0.74 mg/dl (0.44-1.00); GLUCOSE 163 mg/dl (70-220); MAGNESIUM 1.8 mg/dl (1.7-2.5); POTASSIUM 3.9 mmol/L (3.5-5.1); SODIUM 141 mmol/L (135-144)
[2018-08-19] MEDS: ACETAMINOPHEN 650 MG SUPP PR ×2 (08:13→23:53)
[2018-08-19] MEDS: SUCRALFATE (100 MG/ML) 10ML CUP NGT ×4 (08:29→20:38)
[2018-08-19] MEDS: ASCORBIC ACID 500 MG TAB PO ×2 (08:29→20:38)
[2018-08-19] MEDS: MULTIVITAMINS THERAPEUTIC TAB PO (08:30)
[2018-08-19] MEDS: MEMANTINE 10 MG TAB PO (08:30)
[2018-08-19] MEDS: MEROPENEM 1 GM/50ML(PMX) 50 ML IVPB ×2 (08:30→21:28)
[2018-08-19] MEDS: COLLAGENASE 5 GM (UD JAR) TOP (08:30)
[2018-08-19] MEDS: METOPROLOL 50 MG TAB PO ×2 (08:30→20:38)
[2018-08-19] MEDS: BALSAM PERU/CASTOR OIL 60 GM TUBE TOP (08:31)
[2018-08-19] MEDS: POVIDONE IODINE 10% 28.4 GM OINT TOP (08:31)
[2018-08-19] MEDS: PANTOPRAZOLE IV 80 MG in SOD CHLORIDE 0.9% 100 ML IV ×2 (10:38→20:51)
[2018-08-19] MEDS: SOD FERRIC GLUC COMPLX 125 MG in SOD CHLORIDE 0.9% 100 ML IVPB (14:58)
[2018-08-19] MEDS: SODIUM PHOSPHATE 15 MMOL in SOD CHLORIDE 0.9% 250 ML IVPB (16:23)
[2018-08-19] MEDS: CASPOFUNGIN 50 MG in SOD CHLORIDE 0.9% 250 ML IVPB (17:14)
[2018-08-19] MEDS: EZETIMIBE 10 MG TAB PO (20:38)
[2018-08-19] MEDS: ATORVASTATIN 80 MG TAB PO (20:38)
[2018-08-19] MEDS: INSULIN GLARGINE [LANTus] (100 UNITS/ML) SYG SC (20:48)
[2018-08-19] MEDS: VANCOMYCIN 750 MG (PMX) 250 ML IVPB (22:00)
[2018-08-20] MEDS: INSULIN ASPART [NOVOLOG] 3 ML PEN SC ×3 (05:41→17:54)
[2018-08-20 05:59] LABS: ADD MAN DIFF? NO
[2018-08-20 06:02] LABS: WHITE BLOOD COUNT 7.3 10^3/ul (4.8-10.8)
[2018-08-20 06:02] LABS: BASOPHILS % 0.5 % (0.0-2.0); EOSINOPHILS # 0.4 10^3/ul (0.0-0.5); HEMATOCRIT 25.6 % (37.0-47.0); LYMPHOCYTES # 2.1 10^3/ul (0.8-2.9); LYMPHOCYTES % 29.2 % (15.0-51.0); MEAN CORPUSCULAR HEMOGLOBIN 24.4 pg (29.0-33.0); MEAN CORPUSCULAR HGB CONC 31.3 g/dl (32.0-37.0); MEAN PLATELET VOLUME 10.3 fl (7.4-10.4); MONOCYTE # 0.6 10^3/ul (0.3-0.9); MONOCYTES % 8.5 % (0.0-11.0); NEUTROPHIL # 4.1 10^3/ul (1.6-7.5); NEUTROPHILS % 56.5 % (39.0-77.0); PLATELET COUNT 338 10^3/UL (140-415); RED BLOOD COUNT 3.28 10^6/ul (4.20-5.40); RED CELL DISTRIBUTION WIDTH 15.8 % (11.5-14.5)
[2018-08-20 06:35] LABS: ANION GAP 7 (5-13); BLOOD UREA NITROGEN 28 mg/dl (7-20); CALCIUM 7.6 mg/dl (8.4-10.2); CARBON DIOXIDE 23 mmol/L (21-31); CHLORIDE 112 mmol/L (97-110); CREATININE 0.73 mg/dl (0.44-1.00); GLUCOSE 92 mg/dl (70-220); MAGNESIUM 1.8 mg/dl (1.7-2.5); PHOSPHORUS 2.5 mg/dl (2.5-4.9); POTASSIUM 3.6 mmol/L (3.5-5.1); SODIUM 142 mmol/L (135-144)
[2018-08-20] MEDS: PANTOPRAZOLE IV 80 MG in SOD CHLORIDE 0.9% 100 ML IV ×2 (07:11→17:38)
[2018-08-20] MEDS: COLLAGENASE 5 GM (UD JAR) TOP (09:04)
[2018-08-20] MEDS: BALSAM PERU/CASTOR OIL 60 GM TUBE TOP (09:04)
[2018-08-20] MEDS: POVIDONE IODINE 10% 28.4 GM OINT TOP (09:04)
[2018-08-20] MEDS: MULTIVITAMINS THERAPEUTIC TAB PO (09:05)
[2018-08-20] MEDS: MEMANTINE 10 MG TAB PO (09:05)
[2018-08-20] MEDS: METOPROLOL 50 MG TAB PO ×2 (09:05→20:34)
[2018-08-20] MEDS: MEROPENEM 1 GM/50ML(PMX) 50 ML IVPB ×2 (09:05→21:23)
[2018-08-20] MEDS: ASCORBIC ACID 500 MG TAB PO ×2 (09:05→20:33)
[2018-08-20] MEDS: SUCRALFATE (100 MG/ML) 10ML CUP NGT ×4 (09:05→20:33)
[2018-08-20] MEDS: MAGNESIUM SULFATE 2 GM/50 ML 50 ML IVPB (12:06)
[2018-08-20] MEDS: POTASSIUM CHLORIDE 20 MEQ POWDER FOR ORAL SOLN NGT (12:07)
[2018-08-20] MEDS: SOD FERRIC GLUC COMPLX 125 MG in SOD CHLORIDE 0.9% 100 ML IVPB (14:29)
[2018-08-20] MEDS: CASPOFUNGIN 50 MG in SOD CHLORIDE 0.9% 250 ML IVPB (17:38)
[2018-08-20 20:08] LABS: VANCOMYCIN,TROUGH 11.9 ug/ml (10.0-20.0)
[2018-08-20] MEDS: ATORVASTATIN 80 MG TAB PO (20:33)
[2018-08-20] MEDS: EZETIMIBE 10 MG TAB PO (20:33)
[2018-08-20] MEDS: INSULIN GLARGINE [LANTus] (100 UNITS/ML) SYG SC (20:49)
[2018-08-20] MEDS: VANCOMYCIN 750 MG (PMX) 250 ML IVPB (21:22)
[2018-08-21] MEDS: INSULIN ASPART [NOVOLOG] 3 ML PEN SC ×5 (00:17→23:31)
[2018-08-21] MEDS: PANTOPRAZOLE IV 80 MG in SOD CHLORIDE 0.9% 100 ML IV ×2 (03:23→12:15)
[2018-08-21 07:46] LABS: ADD MAN DIFF? NO
[2018-08-21 07:50] LABS: WHITE BLOOD COUNT 9.1 10^3/ul (4.8-10.8)
[2018-08-21 07:50] LABS: BASOPHILS % 0.3 % (0.0-2.0); EOSINOPHILS # 0.3 10^3/ul (0.0-0.5); EOSINOPHILS % 2.9 % (0.0-7.0); HEMATOCRIT 23.6 % (37.0-47.0); HEMOGLOBIN 7.5 g/dl (12.0-16.0); LYMPHOCYTES # 2.5 10^3/ul (0.8-2.9); LYMPHOCYTES % 27.5 % (15.0-51.0); MEAN CORPUSCULAR HEMOGLOBIN 24.8 pg (29.0-33.0); MEAN CORPUSCULAR HGB CONC 31.8 g/dl (32.0-37.0); MEAN CORPUSCULAR VOLUME 78.1 fl (82.0-101.0); MEAN PLATELET VOLUME 11.4 fl (7.4-10.4); MONOCYTE # 0.8 10^3/ul (0.3-0.9); MONOCYTES % 8.2 % (0.0-11.0); NEUTROPHIL # 5.5 10^3/ul (1.6-7.5); NEUTROPHILS % 60.6 % (39.0-77.0); PLATELET COUNT 363 10^3/UL (140-415); RED BLOOD COUNT 3.02 10^6/ul (4.20-5.40); RED CELL DISTRIBUTION WIDTH 16.2 % (11.5-14.5)
[2018-08-21 08:09] LABS: MAGNESIUM 2.2 mg/dl (1.7-2.5)
[2018-08-21 08:17] LABS: ALBUMIN 1.9 g/dl (3.3-4.9); ANION GAP 3 (5-13); BLOOD UREA NITROGEN 27 mg/dl (7-20); CALCIUM 7.4 mg/dl (8.4-10.2); CARBON DIOXIDE 23 mmol/L (21-31); CHLORIDE 112 mmol/L (97-110); CREATININE 0.69 mg/dl (0.44-1.00); GLUCOSE 148 mg/dl (70-220); PHOSPHORUS 1.9 mg/dl (2.5-4.9); POTASSIUM 3.8 mmol/L (3.5-5.1); SODIUM 138 mmol/L (135-144)
[2018-08-21] MEDS: SUCRALFATE (100 MG/ML) 10ML CUP NGT ×4 (08:57→23:24)
[2018-08-21] MEDS: MEMANTINE 10 MG TAB PO (08:57)
[2018-08-21] MEDS: MULTIVITAMINS THERAPEUTIC TAB PO (08:58)
[2018-08-21] MEDS: ASCORBIC ACID 500 MG TAB PO ×2 (08:58→23:24)
[2018-08-21] MEDS: METOPROLOL 50 MG TAB PO ×2 (08:58→23:25)
[2018-08-21] MEDS: POVIDONE IODINE 10% 28.4 GM OINT TOP (08:58)
[2018-08-21] MEDS: COLLAGENASE 5 GM (UD JAR) TOP (08:58)
[2018-08-21] MEDS: BALSAM PERU/CASTOR OIL 60 GM TUBE TOP (08:58)
[2018-08-21] MEDS: MEROPENEM 1 GM/50ML(PMX) 50 ML IVPB ×2 (08:58→22:20)
[2018-08-21] MEDS: LIDOCAINE 1% (MPF) 5 ML VIAL SC (09:45)
[2018-08-21] MEDS: POTASSIUM PHOSPHATE 40 MEQ in SOD CHLORIDE 0.9% 250 ML IVPB (11:09)
[2018-08-21] MEDS ORDERED: CEFAZOLIN 1 GM/50 ML (PMX) 50 ML IVPB (13:30)
[2018-08-21] MEDS: SOD FERRIC GLUC COMPLX 125 MG in SOD CHLORIDE 0.9% 100 ML IVPB (15:48)
[2018-08-21] MEDS: CASPOFUNGIN 50 MG in SOD CHLORIDE 0.9% 250 ML IVPB ×2 (17:00→22:20)
[2018-08-21] MEDS: FUROSEMIDE 40 MG INJ IM (18:23)
[2018-08-21] MEDS: INSULIN GLARGINE [LANTus] (100 UNITS/ML) SYG SC (21:55)
[2018-08-21] MEDS: VANCOMYCIN 750 MG (PMX) 250 ML IVPB (23:00)
[2018-08-21] MEDS: EZETIMIBE 10 MG TAB PO (23:24)
[2018-08-21] MEDS: ATORVASTATIN 80 MG TAB PO (23:24)
[2018-08-22 01:09] LABS: IMMEDIATE SPIN CROSSMATCH 1 1
[2018-08-22] MEDS: ACETAMINOPHEN 650MG/20.3ML CUP NGT (01:41)
[2018-08-22] MEDS: INSULIN ASPART [NOVOLOG] 3 ML PEN SC ×3 (06:09→17:23)
[2018-08-22] MEDS: PANTOPRAZOLE 40 MG INJ IV ×2 (06:14→17:51)
[2018-08-22 06:58] LABS: ADD MAN DIFF? NO
[2018-08-22 07:05] LABS: BASOPHIL # 0.1 10^3/ul (0.0-0.1); BASOPHILS % 0.5 % (0.0-2.0); EOSINOPHILS # 0.3 10^3/ul (0.0-0.5); EOSINOPHILS % 2.4 % (0.0-7.0); HEMATOCRIT 29.1 % (37.0-47.0); HEMOGLOBIN 9.4 g/dl (12.0-16.0); LYMPHOCYTES # 3.3 10^3/ul (0.8-2.9); LYMPHOCYTES % 29.9 % (15.0-51.0); MEAN CORPUSCULAR HEMOGLOBIN 25.8 pg (29.0-33.0); MEAN CORPUSCULAR HGB CONC 32.3 g/dl (32.0-37.0); MEAN CORPUSCULAR VOLUME 79.7 fl (82.0-101.0); MEAN PLATELET VOLUME 11.1 fl (7.4-10.4); MONOCYTE # 0.9 10^3/ul (0.3-0.9); NEUTROPHIL # 6.5 10^3/ul (1.6-7.5); NEUTROPHILS % 58.8 % (39.0-77.0); PLATELET COUNT 367 10^3/UL (140-415); RED BLOOD COUNT 3.65 10^6/ul (4.20-5.40)
[2018-08-22 07:22] LABS: INR 1.05; PROTIME 13.8 Sec (11.9-14.9); PT RATIO 1.1
[2018-08-22] MEDS: MEMANTINE 10 MG TAB PO (08:19)
[2018-08-22] MEDS: ASCORBIC ACID 500 MG TAB PO (08:19)
[2018-08-22] MEDS: METOPROLOL 50 MG TAB PO (08:19)
[2018-08-22] MEDS: SUCRALFATE (100 MG/ML) 10ML CUP NGT ×3 (08:19→17:51)
[2018-08-22] MEDS: MULTIVITAMINS THERAPEUTIC TAB PO (08:19)
[2018-08-22] MEDS: COLLAGENASE 5 GM (UD JAR) TOP (09:03)
[2018-08-22] MEDS: BALSAM PERU/CASTOR OIL 60 GM TUBE TOP (09:03)
[2018-08-22] MEDS: POVIDONE IODINE 10% 28.4 GM OINT TOP (09:03)
[2018-08-22] MEDS: MEROPENEM 1 GM/50ML(PMX) 50 ML IVPB (11:41)
[2018-08-22] MEDS: SOD FERRIC GLUC COMPLX 125 MG in SOD CHLORIDE 0.9% 100 ML IVPB (13:04)
[2018-08-22] MEDS: LIDOCAINE 2% (SDV) 5 ML INJ (14:49)
[2018-08-22] MEDS ORDERED: ETOMIDATE 20 MG INJ (14:50)
[2018-08-22] MEDS ORDERED: MIDAZOLAM 1 MG/ML 2 ML INJ (14:50)
[2018-08-22] MEDS: CEFAZOLIN 1 GM/50 ML (PMX) 50 ML IVPB (15:54)
[2018-08-22] MEDS: LABETALOL HCL 20MG INJ IV (15:55)
[2018-08-22] MEDS: CASPOFUNGIN 50 MG in SOD CHLORIDE 0.9% 250 ML IVPB (17:24)
== END 2018-08-22 20:29 | DRG 871 ==
LOC: E/R 12:52 → TEL 14:40
PROVIDERS: Internal Medicine
PROC: 0DH63UZ Insertion of Feeding Device into Stomach, Percutaneous Approach (ICD-10-PCS; principal; 2018-08-22 12:30)
PROC: 30233N1 Transfusion of Nonautologous Red Blood Cells into Peripheral Vein, Percutaneous Approach (ICD-10-PCS; 2018-08-22 12:30)
PROC: 02HV33Z Insertion of Infusion Device into Superior Vena Cava, Percutaneous Approach (ICD-10-PCS; 2018-08-22 12:30)
PROC: B54MZZA Ultrasonography of Right Upper Extremity Veins, Guidance (ICD-10-PCS; 2018-08-22 12:30)
PROC: 0DJ08ZZ Inspection of Upper Intestinal Tract, Via Natural or Artificial Opening Endoscopic (ICD-10-PCS; 2018-08-22 12:30)
DX: A41.1 Sepsis due to other specified staphylococcus (principal); G92 Toxic encephalopathy; I61.9 Nontraumatic intracerebral hemorrhage, unspecified; I21.4 Non-ST elevation (NSTEMI) myocardial infarction; J69.0 Pneumonitis due to inhalation of food and vomit; N39.0 Urinary tract infection, site not specified; N17.9 Acute kidney failure, unspecified; E87.0 Hyperosmolality and hypernatremia; K92.2 Gastrointestinal hemorrhage, unspecified; R65.20 Severe sepsis without septic shock; B96.4 Proteus (mirabilis) (morganii) as the cause of diseases classified elsewhere; F03.90 Unspecified dementia, unspecified severity, without behavioral disturbance, psychotic disturbance, mood disturbance, and anxiety; I25.10 Atherosclerotic heart disease of native coronary artery without angina pectoris; I25.2 Old myocardial infarction; E86.0 Dehydration; E11.9 Type 2 diabetes mellitus without complications; E78.5 Hyperlipidemia, unspecified; D50.0 Iron deficiency anemia secondary to blood loss (chronic); I69.320 Aphasia following cerebral infarction; E78.00 Pure hypercholesterolemia, unspecified; J01.90 Acute sinusitis, unspecified; Z79.4 Long term (current) use of insulin; Z85.43 Personal history of malignant neoplasm of ovary; Z87.11 Personal history of peptic ulcer disease; I11.0 Hypertensive heart disease with heart failure; I50.9 Heart failure, unspecified; Z90.49 Acquired absence of other specified parts of digestive tract; Z90.710 Acquired absence of both cervix and uterus
CPT/HCPCS: 36415; 36430; 36569; 70450; 70496; 70498; 70551; 71045; 76937; 80048; 80053; 80061; 80069; 80202; 80307; 81001; 82140; 82270; 82550; 82553; 82607; 82728; 82962; 83036; 83540; 83605; 83735; 84100; 84443; 84484; 85014; 85018; 85025; 85045; 85610; 85651; 85730; 86592; 86850; 86900; 86901; 86920; 87040; 87075; 87081; 87086; 92526; 92610; 93005; 93306; 93880; 95819; 99285-25

== ENCOUNTER 2018-09-03 11:20 | Day surgery (SDC) | payer OTHER, MEDICARE ==
[2018-09-03] MEDS ORDERED: DEXTROSE 50% 50 ML SYRINGE (12:05)
[2018-09-03] MEDS ORDERED: LIDOCAINE 2% (SDV) 5 ML INJ (12:14)
[2018-09-03] MEDS ORDERED: PROPOFOL 20 ML (12:14)
== END 2018-09-03 14:07 ==
LOC: GIL 11:20
DX: K92.2 Gastrointestinal hemorrhage, unspecified (principal); I10 Essential (primary) hypertension; E78.5 Hyperlipidemia, unspecified; I25.10 Atherosclerotic heart disease of native coronary artery without angina pectoris; F03.90 Unspecified dementia, unspecified severity, without behavioral disturbance, psychotic disturbance, mood disturbance, and anxiety; E11.9 Type 2 diabetes mellitus without complications
CPT/HCPCS: 45378; 82962; 88104; 88107; 88305

== ENCOUNTER 2018-09-14 12:41 | Day surgery (SDC) | payer OTHER ==
[2018-09-14] MEDS ORDERED: EPINEPHrine 0.1 MG/ML SYG (17:42)
== END 2018-09-14 18:30 | disposition hospice, inpatient (51) ==
LOC: GIL 12:41
DX: K62.9 Disease of anus and rectum, unspecified (principal); I10 Essential (primary) hypertension; E11.9 Type 2 diabetes mellitus without complications; E78.5 Hyperlipidemia, unspecified; I25.10 Atherosclerotic heart disease of native coronary artery without angina pectoris; Z86.73 Personal history of transient ischemic attack (TIA), and cerebral infarction without residual deficits
CPT/HCPCS: 45331; 88305

== ENCOUNTER 2018-09-30 14:02 | Inpatient (IN) | payer MEDICARE, OTHER ==
[2018-09-30] MEDS: SODIUM CHLORIDE 0.9% 1L BAG IV* (14:30)
[2018-09-30 14:42] LABS: ADD MAN DIFF? NO
[2018-09-30 14:52] LABS: ABNORMAL IP MESSAGE 1; BASOPHIL # 0.1 10^3/ul (0.0-0.1); BASOPHILS % 0.6 % (0.0-2.0); EOSINOPHILS # 0.1 10^3/ul (0.0-0.5); EOSINOPHILS % 1.1 % (0.0-7.0); HEMATOCRIT 27.4 % (37.0-47.0); HEMOGLOBIN 7.9 g/dl (12.0-16.0); LYMPHOCYTES # 1.9 10^3/ul (0.8-2.9); LYMPHOCYTES % 19.5 % (15.0-51.0); MEAN CORPUSCULAR HEMOGLOBIN 25.3 pg (29.0-33.0); MEAN CORPUSCULAR HGB CONC 28.8 g/dl (32.0-37.0); MEAN CORPUSCULAR VOLUME 87.8 fl (82.0-101.0); MEAN PLATELET VOLUME 12.4 fl (7.4-10.4); MONOCYTE # 0.8 10^3/ul (0.3-0.9); MONOCYTES % 8.1 % (0.0-11.0); NEUTROPHILS % 70.3 % (39.0-77.0); PLATELET COUNT 349 10^3/UL (140-415); RED BLOOD COUNT 3.12 10^6/ul (4.20-5.40); RED CELL DISTRIBUTION WIDTH 19.1 % (11.5-14.5)
[2018-09-30 14:52] LABS: WHITE BLOOD COUNT 9.9 10^3/ul (4.8-10.8)
[2018-09-30 15:01] LABS: POSITIVE DIFF @See below
[2018-09-30 15:09] LABS: ALANINE AMINOTRANSFERASE 61 IU/L (13-69); ALBUMIN 2.7 g/dl (3.3-4.9); ALBUMIN/GLOBULIN RATIO 0.87; ALKALINE PHOSPHATASE 70 IU/L (42-121); AMYLASE 39 U/L (11-123); ANION GAP 11 (5-13); ASPARTATE AMINO TRANSFERASE 50 IU/L (15-46); BLOOD UREA NITROGEN 71 mg/dl (7-20); CALCIUM 8.3 mg/dl (8.4-10.2); CARBON DIOXIDE 36 mmol/L (21-31); CHLORIDE 105 mmol/L (97-110); CREATININE 0.79 mg/dl (0.44-1.00); GLUCOSE 203 mg/dl (70-220); LIPASE 240 U/L (23-300); POTASSIUM 4.1 mmol/L (3.5-5.1); SODIUM 152 mmol/L (135-144); TOTAL PROTEIN 5.8 g/dl (6.1-8.1)
[2018-09-30 15:16] LABS: INR 1.15; PROTIME 14.8 Sec (11.9-14.9); PT RATIO 1.2
[2018-09-30 15:17] LABS: PARTIAL THROMBOPLASTIN TIME 31.7 Sec (23.0-35.0)
[2018-09-30 15:24] LABS: ADD UMIC YES; UR ASCORBIC ACID 40 mg/dL (NEGATIVE); UR BACTERIA FEW /HPF (NONE SEEN); UR BILIRUBIN (Dip) NEGATIVE (NEGATIVE); UR BLOOD (Dip) NEGATIVE (NEGATIVE); UR CLARITY CLOUDY (CLEAR); UR COLOR YELLOW (YELLOW); UR GLUCOSE (Dip) NEGATIVE (NEGATIVE); UR KETONES (Dip) NEGATIVE (NEGATIVE); UR LEUKOCYTE ESTERASE (Dip) 3+ Leu/ul (NEGATIVE); UR MUCUS MANY /HPF (NONE SEEN); UR NITRITE (Dip) NEGATIVE (NEGATIVE); UR RBC 7 /HPF (0-5); UR SPECIFIC GRAVITY (Dip) 1.023 (1.003-1.030); UR TOTAL PROTEIN (Dip) 2+ mg/dl (NEGATIVE); UR UROBILINOGEN (Dip) NEGATIVE (NEGATIVE); UR WBC 4 /HPF (0-5)
[2018-09-30 15:28] LABS: TROPONIN-I 0.165 ng/ml (0.000-0.120)
[2018-09-30] MEDS: IPRATROPIUM (NEB) 0.5 MG/2.5 ML AMP NEB (15:43)
[2018-09-30] MEDS: ALBUTEROL 0.5% (NEB) 2.5 MG/0.5 ML AMP NEB (15:43)
[2018-09-30 16:12] LABS: B-TYPE NATRIURETIC PEPTIDE 25000 PG/ML (0-450)
[2018-09-30] MEDS ORDERED: ASPIRIN 300 MG SUPP PR (16:28)
[2018-09-30] MEDS: CEFTRIAXONE 1 GM/50 ML (PMX) 50 ML IVPB (16:48)
[2018-09-30] MEDS: ASPIRIN 325 MG TAB PO (16:48)
[2018-09-30] MEDS: ASPIRIN 300 MG SUPP PR (16:53)
[2018-09-30] MEDS ORDERED: ONDANSETRON 4 MG INJ IV ×2 (17:30→19:30)
[2018-09-30] MEDS ORDERED: ACETAMINOPHEN 325 MG TAB PO (17:30)
[2018-09-30] MEDS ORDERED: NACL 0.9% 3 ML SYG IV (19:30)
[2018-09-30] MEDS ORDERED: ACETAMINOPHEN 650MG/20.3ML CUP GTB (19:30)
[2018-09-30] MEDS: ALBUTEROL/IPRATROPIUM (NEB) 3 ML AMP HHN (19:50)
[2018-09-30] MEDS: hydrALAzine 20 MG INJ IV (19:58)
[2018-09-30] MEDS: FUROSEMIDE 40 MG INJ IV (19:58)
[2018-09-30] MEDS ORDERED: GLUCOSE GEL 15 GRAM TUBE PO ×2 (20:00)
[2018-09-30] MEDS ORDERED: DEXTROSE 50% 50 ML SYRINGE IV ×2 (20:00)
[2018-09-30] MEDS ORDERED: GLUCAGON 1 MG INJ IM (20:00)
[2018-09-30] MEDS ORDERED: GLUCOSE GEL 15 GRAM TUBE BUCCAL (20:00)
[2018-09-30 20:12] LABS: AADO2 Arterial 63.1 mmHg (7.0-24.0); Allen Test ACCEPTAB; Arterial Base Excess 6.6 mmol/L (-3.0-3); Arterial COHb 0.3 % (0.0-3.0); Arterial Fraction of Oxyhgb 95.1 % (93.0-99.0); Arterial HCO3 34.7 mmol/L (22.0-26.0); Arterial MetHb 0.6 % (0.0-1.5); Arterial pCO2 73.3 mmhg (35-45); Blood Gas IEPAP 15/5; MODE MASK - BIPAP; Site Right Radial
[2018-09-30] MEDS ORDERED: METHYLPREDNISOLONE 125 MG INJ IV (20:30)
[2018-09-30] MEDS: METHYLPREDNISOLONE 125 MG INJ IV (20:31)
[2018-09-30 21:01] LABS: LACTIC ACID 1.4 mmol/L (0.5-2.0)
[2018-09-30 22:31] LABS: AADO2 Arterial 344.6 mmHg (7.0-24.0); Allen Test ACCEPTAB; Arterial Base Excess 3.6 mmol/L (-3.0-3); Arterial Blood Gas Oxygen Sat 99.2 mmHG (95.0-100.0); Arterial COHb 0.3 % (0.0-3.0); Arterial Fraction of Oxyhgb 98.3 % (93.0-99.0); Arterial HCO3 30.4 mmol/L (22.0-26.0); Arterial MetHb 0.6 % (0.0-1.5); Arterial pCO2 57.9 mmhg (35-45); Blood Gas IEPAP 18/5; MODE MASK - BIPAP; Site Right Radial
[2018-10-01] MEDS: SUCRALFATE (100 MG/ML) 10ML CUP GTB ×4 (00:01→16:00)
[2018-10-01] MEDS: LANSOPRAZOLE 30 MG CAP GTB ×3 (00:01→17:18)
[2018-10-01] MEDS: EZETIMIBE 10 MG TAB GTB (00:02)
[2018-10-01] MEDS: METOPROLOL 50 MG TAB GTB ×2 (00:02→08:54)
[2018-10-01] MEDS: ATORVASTATIN 80 MG TAB GTB (00:02)
[2018-10-01] MEDS: BENAZEPRIL 20 MG TAB GTB ×2 (00:02→08:51)
[2018-10-01] MEDS: ASCORBIC ACID 500 MG TAB GTB ×2 (00:03→08:55)
[2018-10-01] MEDS: DEXTROSE 5% 1,000 ML IV ×2 (00:16→15:12)
[2018-10-01] MEDS: INSULIN GLARGINE [LANTus] (100 UNITS/ML) SYG SC (01:52)
[2018-10-01] MEDS: ALBUTEROL/IPRATROPIUM (NEB) 3 ML AMP HHN (02:10)
[2018-10-01] MEDS: SOD CHLORIDE 0.9% 500 ML IV (03:33)
[2018-10-01 06:07] LABS: ADD MAN DIFF? NO
[2018-10-01 06:09] LABS: ABNORMAL IP MESSAGE 1; BASOPHILS % 0.2 % (0.0-2.0); HEMATOCRIT 28.4 % (37.0-47.0); LYMPHOCYTES # 0.7 10^3/ul (0.8-2.9); LYMPHOCYTES % 5.5 % (15.0-51.0); MEAN CORPUSCULAR HEMOGLOBIN 25.4 pg (29.0-33.0); MEAN CORPUSCULAR HGB CONC 28.2 g/dl (32.0-37.0); MEAN CORPUSCULAR VOLUME 90.2 fl (82.0-101.0); MEAN PLATELET VOLUME 13.1 fl (7.4-10.4); MONOCYTE # 0.2 10^3/ul (0.3-0.9); MONOCYTES % 1.4 % (0.0-11.0); NEUTROPHILS % 92.2 % (39.0-77.0); PLATELET COUNT 333 10^3/UL (140-415); RED BLOOD COUNT 3.15 10^6/ul (4.20-5.40); RED CELL DISTRIBUTION WIDTH 18.7 % (11.5-14.5)
[2018-10-01 06:14] LABS: POSITIVE DIFF @See below
[2018-10-01 06:38] LABS: ANION GAP 15 (5-13); BLOOD UREA NITROGEN 74 mg/dl (7-20); CALCIUM 8.3 mg/dl (8.4-10.2); CARBON DIOXIDE 29 mmol/L (21-31); CHLORIDE 107 mmol/L (97-110); CREATININE 0.86 mg/dl (0.44-1.00); GLUCOSE 355 mg/dl (70-220); MAGNESIUM 2.3 mg/dl (1.7-2.5); POTASSIUM 4.9 mmol/L (3.5-5.1); SODIUM 151 mmol/L (135-144)
[2018-10-01 06:46] LABS: B-TYPE NATRIURETIC PEPTIDE 23700 PG/ML (0-450)
[2018-10-01] MEDS: FUROSEMIDE 20 MG TAB GTB (08:54)
[2018-10-01] MEDS: MULTIVITAMINS THERAPEUTIC TAB GTB (08:54)
[2018-10-01] MEDS: MEMANTINE 10 MG TAB GTB (08:55)
[2018-10-01] MEDS: ENOXAPARIN 40 MG/0.4 ML SYG SC (09:40)
[2018-10-01] MEDS ORDERED: LORAZEPAM 2 MG INJ IV (15:30)
[2018-10-01] MEDS ORDERED: ACETAMINOPHEN 650 MG SUPP PR (15:30)
[2018-10-01] MEDS ORDERED: BISACODYL 10 MG SUPP PR (15:30)
[2018-10-01] MEDS ORDERED: ALBUTEROL/IPRATROPIUM (NEB) 3 ML AMP HHN (15:30)
[2018-10-01] MEDS: CEFTRIAXONE 1 GM/50 ML (PMX) 50 ML IVPB (16:01)
[2018-10-01] MEDS: morphine (DRIP) 100 MG/100 ML 100 ML IV (17:05)
[2018-10-02] MEDS: ATROPINE 1% 5 ML OPH SL (12:54)
[2018-10-02] MEDS: SCOPOLAMINE 1.5 MG PATCH TRANSDERM (13:51)
== END 2018-10-02 20:30 | disposition expired | DRG 189 ==
LOC: MS1 10-02 02:01 → E/R 14:02 → MS1 18:57 → 6WM 17:05
PROC: 5A09357 Assistance with Respiratory Ventilation, Less than 24 Consecutive Hours, Continuous Positive Airway Pressure (ICD-10-PCS; principal; 2018-09-30)
PROC: 4A133R1 Monitoring of Arterial Saturation, Peripheral, Percutaneous Approach (ICD-10-PCS; 2018-09-30)
DX: J96.01 Acute respiratory failure with hypoxia (principal); R53.2 Functional quadriplegia; I50.20 Unspecified systolic (congestive) heart failure; N17.9 Acute kidney failure, unspecified; N39.0 Urinary tract infection, site not specified; E87.0 Hyperosmolality and hypernatremia; G30.9 Alzheimer's disease, unspecified; F02.80 Dementia in other diseases classified elsewhere, unspecified severity, without behavioral disturbance, psychotic disturbance, mood disturbance, and anxiety; E86.0 Dehydration; R13.10 Dysphagia, unspecified; Z93.1 Gastrostomy status; Z66 Do not resuscitate; I11.0 Hypertensive heart disease with heart failure; D63.8 Anemia in other chronic diseases classified elsewhere; I25.10 Atherosclerotic heart disease of native coronary artery without angina pectoris; E11.9 Type 2 diabetes mellitus without complications; Z87.440 Personal history of urinary (tract) infections; Z85.43 Personal history of malignant neoplasm of ovary; Z79.4 Long term (current) use of insulin; Z86.73 Personal history of transient ischemic attack (TIA), and cerebral infarction without residual deficits
CPT/HCPCS: 36600; 71045; 80048; 80053; 81001; 82150; 82803; 82962; 83605; 83690; 83735; 83880; 84100; 84484; 85025; 85610; 85730; 87040; 87086; 93005; 94640; 94660; 94664; 96374; 99291-25